=== PATIENT | female | born 1935 | race Caucasian/White ===

== ENCOUNTER 2021-08-27 07:27 | Emergency (ER) | payer MEDICARE ==
[~2021-08-27] VITALS: Ht 157.5 cm; Wt 48.2 kg
[2021-08-27 07:44] VITALS: BP 155/76
--- NOTE | 2021-08-27 07:44 | PHYS DOC ---
Adult General Chief Complaint Chief Complaint: BACK PAIN - NO INJURY HPI HPI Patient is an otherwise healthy 86-year-old female who presents with a chief complaint of right flank pain. States she was diagnosed with a urinary tract infection last week, went to her primary care physician and completed a course of Macrobid. States that she is still having urinary symptoms such as warm urine, dark urine and frequency of urination now having right-sided flank pain. States she is also had a decrease in appetite. Denies any recent traumas, travels, fevers, chest pain, shortness of breath, other abdominal pain, nausea, vomiting, diarrhea, hematuria or blood in the stool. States she otherwise feels well. States that even though her appetite is down a little she is still eating and drinking. Denies any dyspnea on exertion, orthopnea, PND or edema. Denies any trouble sitting, standing or walking. Review of Systems Review of Systems Review of systems otherwise unremarkable except noted in HPI Physical Exam Physical Exam Constitutional: Well developed, well nourished, no acute distress, non-toxic a ppearance. [] HENT: Normocephalic, oropharynx moist, no oral exudates, nose normal. [] Eyes: conjunctiva normal, no discharge. [] Neck: Normal range of motion, no tenderness, supple, no stridor. [] Cardiovascular:Heart rate regular rhythm, no murmur [] Lungs & Thorax: Bilateral breath sounds clear to auscultation [] Abdomen: soft, no tenderness, no masses, no pulsatile masses. [] Skin: Warm, dry, no erythema, no rash. [] Back: No midline tenderness throughout entirety of spine, right CVA tenderness. [] Extremities: No tenderness, no cyanosis, no clubbing, ROM intact, no edema. [] Neurologic: Alert and oriented X 3, normal motor function, normal sensory function, no focal deficits noted. [] Psychologic: Affect normal, judgement normal, mood normal. [] EKG EKG [] Radiology/Procedures Radiology/Procedures [] Heart Score C/O Chest Pain: No Risk Factors: Risk Factors: DM, Current or recent (<one month) smoker, HTN, HLP, family history of CAD, obesity. Risk Scores: Risk Factors: DM, Current or recent (<one month) smoker, HTN, HLP, family history of CAD, obesity. Course & Med Decision Making Course & Med Decision Making Patient is an 86-year-old female who presents with a chief complaint of urinary symptoms and right-sided flank pain Vital signs notable for hypertension. Physical exam noted above. Laboratory analysis not concerning. Urinalysis with elevated white blood cells and some leukocyte esterase with no bacteria. However patient with recent UTI, and still symptomatic so began treatment with Keflex. Discussed all findings with patient. Advised on nutrition and hydration. Advised to follow-up this morning with primary care physician to set up a follow-up visit. Gave return precautions to the ED. Patient grateful, verbalized understanding and agreed with plan of discharge. [] Dragon Disclaimer Dragon Disclaimer This electronic medical record was generated, in whole or in part, using a voice recognition dictation system. Departure Departure: Impression: Primary Impression: Flank pain Additional Impression: Urinary tract infection symptoms Disposition: HOME / SELF CARE / HOMELESS Condition: GOOD Referrals: OBI DANIELS MD (PCP) Patient Instructions: Urinary Tract Infection Additional Instructions: Thank you for coming into the emergency department tonight and allowing us to take care of you. Please read the attached information carefully to go back over some of the things we discussed. Please take your antibiotics as prescribed. Please be sure to drink plenty of fluids. Please follow-up with your primary care physician this morning to set up a follow-up as soon as you can for reevaluation. Please come back to the ED with new or concerning symptoms as we discussed. Scripts Cephalexin (KEFLEX) 500 Mg Capsule 1 CAP PO BID for UTI for 5 Days, #10 CAP Prov: AIDEE GARVIN MD 08/27/21 Problem Qualifiers AIDEE GARVIN MD Aug 27, 2021 07:44
[2021-08-27 08:22] LABS: BASO % 1 % (0-3); EOS # 0.1 x10^3/uL (0.0-0.7); EOS % 2 % (0-3); HEMATOCRIT 37.3 % (36.0-47.0); HEMOGLOBIN 12.1 g/dL (12.0-15.5); LYMPH # 1.2 x10^3/uL (1.0-4.8); LYMPH % 17 % (24-48); MEAN CORPUSCULAR HEMOGLOBIN 30 pg (25-35); MEAN CORPUSCULAR HGB CONC 32 g/dL (31-37); MEAN CORPUSCULAR VOLUME 92 fL (79-100); MONO # 0.6 x10^3/uL (0.0-1.1); MONO % 8 % (0-9); NEUT # 5.1 x10^3uL (1.8-7.7); NEUT % 73 % (31-73); PLATELET COUNT 276 x10^3/uL (140-400); RED BLOOD COUNT 4.04 x10^6/uL (3.50-5.40)
[2021-08-27 08:31] LABS: BILIRUBIN,URINE SMALL (NEG); CLARITY,URINE CLOUDY; COLOR,URINE YELLOW; GLUCOSE,URINE NEG (NEG); NITRITE,URINE NEG (NEG)
[2021-08-27 08:32] LABS: BACTERIA,URINE 0 /HPF (0-FEW); HYALINE CASTS, URINE OCC /HPF; SQUAMOUS EPITHELIAL CELL,UR MOD /LPF
[2021-08-27 08:33] LABS: CALCIUM 8.8 mg/dL (8.5-10.1); CREATININE 0.9 mg/dL (0.6-1.0); GFR 59.5; POTASSIUM 3.9 mmol/L (3.5-5.1)
[2021-08-27] MEDS ORDERED: CEPH500C PO (08:50)
[2021-08-27] MEDS ORDERED: CEPHALEXIN 250 MG CAPSULE PO ONE (09:00)
[2021-08-27] MEDS ORDERED: PHENAZOPYRIDINE 100 MG TABLET. PO ONE (09:00)
--- NOTE | 2021-08-27 18:52 | EKG ---
[address] [address] Test Date: 2021-08-27 Test Time: 07:52:46 Pat Name: JONATHAN GOULD Department: Room: Gender: F [employer]: PURVI : [id number] Requested By: AIDEE GARVIN Order Number: [id number] Reading MD: Dayton Chavez Measurements Intervals Proctor Rate: 75 P: 90 MO: 166 QRS: 61 QRSD: 78 T: 32 QT: 356 QTc: 400 Interpretive Statements SINUS RHYTHM LEFT ATRIAL ABNORMALITY ABNORMAL ECG RI6.02 No previous ECG available for comparison Electronically Signed On 08-31-2021 9:57:51 [employer] by Dayton Chavez
== END 2021-08-27 09:05 | disposition home or self-care (01) ==
LOC: ER 07:27
DX: N39.0 Urinary tract infection, site not specified (principal); D72.829 Elevated white blood cell count, unspecified; I10 Essential (primary) hypertension
CPT/HCPCS: 36415; 80048; 81001; 84484; 85025; 87086; 93005; 99284-25

== ENCOUNTER → 2021-09-28 | Outpatient (CLI) | payer MEDICARE ==
[~2021-09-28] MED LIST: CEPH500C PO
--- NOTE | 2021-09-29 13:05 | RAD ---
XR HIP (WITH OR WITHOUT PELVIS) RIGHT 1 VIEW History: Reason: S/P HIP REPLACEMENT / Spl. Instructions: / History: Technique: AP view the pelvis and additional views of the right hip. Comparison: None. Findings: Internal fixation right proximal femur fracture. No dislocation. Intertrochanteric fracture line is s till evident. Displaced lesser trochanter fracture fragment. Lower lumbar spondylosis. Impression: 1. Internal fixation right proximal femur fracture. Electronically signed by: Thee Garcia DO (09/29/2021 1:03 PM) [id number]
== END ==
LOC: RAD 14:23
PROVIDERS: ATTEND Internal Medicine
DX: S72.121A Displaced fracture of lesser trochanter of right femur, initial encounter for closed fracture (principal); S72.141A Displaced intertrochanteric fracture of right femur, initial encounter for closed fracture; M80.051D Age-related osteoporosis with current pathological fracture, right femur, subsequent encounter for fracture with routine healing; M47.816 Spondylosis without myelopathy or radiculopathy, lumbar region; R55 Syncope and collapse; K59.00 Constipation, unspecified; D64.9 Anemia, unspecified; K44.9 Diaphragmatic hernia without obstruction or gangrene; X58.XXXA Exposure to other specified factors, initial encounter; Y93.89 Activity, other specified; Y92.89 Other specified places as the place of occurrence of the external cause; Y99.8 Other external cause status
CPT/HCPCS: 73501